=== PATIENT | female | born 1935 | race Caucasian/White ===

== ENCOUNTER 2017-06-16 20:29 | Inpatient (IN) | payer MEDICARE ==
[~2017-06-16] VITALS: Ht 165.1 cm; Wt 77.1 kg
[~2017-06-16 20:29] MED LIST: ACET-66 PO; ALBU8.5H8 IH; ALPR1TAB7 PO; AZIT250T9 PO; PROM25TA7 PO; THEO400T3 PO
[2017-06-16] MEDS ORDERED: IPRATROPIUM/ALBUTEROL SULFATE 3 ML SOLUTION IH ONE (20:43)
[2017-06-16] MEDS ORDERED: MEROPENEM 1 GM VIAL ONE (20:52)
[2017-06-16] MEDS ORDERED: FENTANYL CITRATE PF 50 MCG/1 ML 2ML VIAL ONE (20:53)
[2017-06-16] MEDS ORDERED: DEXAMETHASONE SOD PHOSPHATE 10MG/ML 1ML VIAL ONE (20:53)
[2017-06-16 21:23] LABS: BASOPHILS % (AUTO) 0.3 % (0.0-5.0); EOSINOPHILS % (AUTO) 0.1 % (0.0-8.0); HEMATOCRIT 34.2 % (36-48); MEAN CORPUSCULAR HEMOGLOBIN 29.1 pg (27.0-33.0); MEAN CORPUSCULAR HGB CONC 31.8 g/dL (32.0-36.0); MEAN CORPUSCULAR VOLUME 91.3 fL (79-99); MONOCYTES % (AUTO) 4.1 % (3.0-13.0); NEUTROPHILS % (AUTO) 93.5 % (40.0-77.0); NUCLEATED RED BLOOD CELLS 0.1 % (0.0-0.19); PLATELET COUNT (AUTO) 368 K/uL (130-400); RED BLOOD CELL COUNT(AUTO) 3.75 MIL/uL (4.00-5.50); RED CELL DISTRIBUTION WIDTH 15.2 % (11.0-15.5); WHITE BLOOD COUNT (AUTO) 12.4 K/uL (4.8-10.8)
[2017-06-16 21:37] LABS: CARBON DIOXIDE 39 mmol/L (21-32); CHLORIDE 95 mmol/L (101-111); CREATININE 0.6 mg/dL (0.5-1.5); GLOMERULAR FILTR. RATE CALC 102 mL/min (>60); GLUCOSE,RANDOM 114 mg/dL (70-105); POTASSIUM 4.8 mmol/L (3.5-5.1); SODIUM SERUM 135 mmol/L (136-145); UREA NITROGEN, BLOOD 9 mg/dL (7-18)
[2017-06-16 21:40] LABS: INR 0.94 (0.85-1.15); PARTIAL THROMBOPLASTIN TIME 28.9 SEC (26.3-35.5); PROTHROMBIN TIME 9.9 SEC (9.6-11.6)
[2017-06-16 21:52] LABS: ALANINE AMINOTRANSFERASE 11 U/L (12-78); ALBUMIN 2.7 g/dL (3.5-5.0); ASPARTATE AMINOTRANSFERASE 29 U/L (10-37); BILIRUBIN,TOTAL 0.5 mg/dL (0.2-1.0); CREATINE KINASE MB 2.3 ng/mL (0.5-3.6); CREATINE KINASE, TOTAL 74 U/L (21-232); MYOGLOBIN 54 ng/mL (10-92); TOTAL PROTEIN, SERUM 6.9 g/dL (6.0-8.3); TROPONIN I < 0.04 ng/mL (0.00-0.06)
[2017-06-16] MEDS ORDERED: ONDANSETRON HCL 4 MG/2 ML VIAL ONE (23:17)
[2017-06-17 00:18] LABS: APPEARANCE,URINE Clear (CLEAR); BILIRUBIN,URINE Negative (NEGATIVE); COLOR,URINE Yellow (YELLOW); GLUCOSE, URINE (UA) Negative (NEGATIVE); KETONES,URINE Trace mg/dL (NEGATIVE); LEUKOCYTE ESTERASE ,URINE Small (NEGATIVE); NITRATE,URINE Negative (NEGATIVE); OCCULT BLOOD,URINE Small (NEGATIVE); PROTEIN,URINE Negative (NEGATIVE); UROBILINOGEN,URINE 0.2 mg/dL (0.2-1.0)
[2017-06-17 00:30] LABS: BACTERIA,URINE Few /HPF (None Seen)
[2017-06-17 00:31] LABS: MUCUS,URINE Moderate LPF (None Seen); SQUAMOUS EPITHELIAL CELL,UR Moderate /LPF (0-2)
[2017-06-17] MEDS ORDERED: PROMETHAZINE HCL 25 MG/ML 1ML AMPULE IM ONE ×2 (01:31→05:23)
[2017-06-17] MEDS ORDERED: HYDROMORPHONE HCL 0.5 MG/0.5 ML ML ONE ×3 (01:31→10:19)
[2017-06-17] MEDS ORDERED: PROMETHAZINE HCL 25 MG/ML 1ML AMPULE IM PRN (05:15)
[2017-06-17] MEDS ORDERED: VANCOMYCIN PROTOCOL PER PHARMACY IV SCH (05:15)
[2017-06-17] MEDS ORDERED: HYDROMORPHONE HCL 0.5 MG/0.5 ML ML IVP PRN (05:15)
[2017-06-17] MEDS ORDERED: IPRATROPIUM/ALBUTEROL SULFATE 3 ML SOLUTION IH ONE ×2 (05:52→11:03)
[2017-06-17] MEDS: IPRATROPIUM/ALBUTEROL SULFATE 3 ML SOLUTION IH SCH ×5 (05:55→22:24)
[2017-06-17] MEDS ORDERED: VANCOMYCIN 1.5 GM in SODIUM CHLORIDE 0.9% 250 ML IV SCH (06:00)
[2017-06-17 06:35] LABS: BASOPHILS % (AUTO) 0.2 % (0.0-5.0); HEMATOCRIT 35.2 % (36-48); LYMPHOCYTES % (AUTO) 3.2 % (21.0-51.0); MEAN CORPUSCULAR HEMOGLOBIN 28.7 pg (27.0-33.0); MEAN CORPUSCULAR HGB CONC 31.1 g/dL (32.0-36.0); MONOCYTES % (AUTO) 1.1 % (3.0-13.0); NEUTROPHILS % (AUTO) 95.5 % (40.0-77.0); PLATELET COUNT (AUTO) 365 K/uL (130-400); RED BLOOD CELL COUNT(AUTO) 3.83 MIL/uL (4.00-5.50); RED CELL DISTRIBUTION WIDTH 15.7 % (11.0-15.5); WHITE BLOOD COUNT (AUTO) 5.9 K/uL (4.8-10.8)
[2017-06-17 06:40] LABS: CREATININE 0.6 mg/dL (0.5-1.5)
[2017-06-17 07:27] LABS: B-TYPE NATRIURETIC PEPTIDE 421 pg/mL (0-100)
[2017-06-17] MEDS ORDERED: VANCOMYCIN 1.25 GM in SODIUM CHLORIDE 0.9% 250 ML IV SCH (07:45)
[2017-06-17] MEDS ORDERED: DOXYCYCLINE 100MG+NS 250ML 250 ML IV ONE (07:50)
[2017-06-17] MEDS ORDERED: AZTREONAM 2 GM VIAL ONE (07:50)
[2017-06-17] MEDS ORDERED: OSELTAMIVIR PHOSPHATE 75 MG CAP ONE (07:52)
[2017-06-17] MEDS ORDERED: METHYLPREDNISOLONE SOD SUCC 40MG/ML 1ML ONE (07:53)
[2017-06-17] MEDS: DOXYCYCLINE 100MG+NS 250ML 250 ML IV SCH ×2 (08:00→22:11)
[2017-06-17] MEDS: METHYLPREDNISOLONE SOD SUCC 125MG/2ML VIAL IVP SCH ×3 (08:00→22:12)
[2017-06-17] MEDS: AZTREONAM 1 GM VIAL IVP SCH ×3 (08:00→22:12)
[2017-06-17] MEDS: OSELTAMIVIR PHOSPHATE 75 MG CAP PO SCH ×2 (08:11→22:11)
[2017-06-17 09:35] VITALS: BP 103/42
[2017-06-17 12:30] VITALS: BP 111/71
[2017-06-17 16:09] VITALS: BP 125/61
[2017-06-17 18:30] VITALS: BP_SYST 114; BP_SYST 127; BP_DIAS 76; BP_DIAS 78
[2017-06-17 19:49] VITALS: BP 125/60
[2017-06-17] MEDS: HYDROMORPHONE HCL 0.5 MG/0.5 ML ML IVP PRN (20:01)
[2017-06-17] MEDS: THEOPHYLLINE ANHYDROUS 100 MG TAB.SR.12H PO SCH (22:11)
[2017-06-17] MEDS: ALPRAZOLAM 1 MG TAB PO SCH (22:12)
[2017-06-17 23:56] VITALS: BP 121/53
[2017-06-18] MEDS: IPRATROPIUM/ALBUTEROL SULFATE 3 ML SOLUTION IH SCH ×6 (02:16→22:40)
[2017-06-18 04:00] VITALS: BP 131/76
[2017-06-18] MEDS: HYDROMORPHONE HCL 0.5 MG/0.5 ML ML IVP PRN ×3 (04:12→18:09)
[2017-06-18 04:22] LABS: HEMATOCRIT 31.9 % (36-48); MEAN CORPUSCULAR HEMOGLOBIN 29.6 pg (27.0-33.0); MEAN CORPUSCULAR HGB CONC 32.1 g/dL (32.0-36.0); PLATELET COUNT (AUTO) 321 K/uL (130-400); RED BLOOD CELL COUNT(AUTO) 3.47 MIL/uL (4.00-5.50); RED CELL DISTRIBUTION WIDTH 15.4 % (11.0-15.5); WHITE BLOOD COUNT (AUTO) 9.7 K/uL (4.8-10.8)
[2017-06-18 04:47] LABS: CREATININE 0.8 mg/dL (0.5-1.5); MAGNESIUM 2.4 mg/dL (1.80-2.40); PHOSPHORUS 3.4 mg/dL (2.5-4.9); THYROID STIMULATING HORMONE 0.54 uIU/mL (0.36-3.74)
[2017-06-18 04:56] LABS: ABG BASE EXCESS 8.8 mmol/L (-2.0-3.0); ABG HCO3 40.2 mmol/L (21.0-28.0); ABG OXYGEN SATURATION 89.2 % (95.0-99.0); ABG PCO2 92 mmHg (32-45)
[2017-06-18 04:57] LABS: THEOPHYLLINE 5.3 mcg/mL (10.0-20.0)
[2017-06-18] MEDS: ALPRAZOLAM 1 MG TAB PO SCH ×3 (05:02→17:00)
[2017-06-18] MEDS: METHYLPREDNISOLONE SOD SUCC 125MG/2ML VIAL IVP SCH ×3 (05:41→20:30)
[2017-06-18] MEDS: AZTREONAM 1 GM VIAL IVP SCH ×3 (05:41→23:00)
[2017-06-18 07:33] VITALS: BP 133/55
[2017-06-18] MEDS: VANCOMYCIN 500MG+NS 100ML 100 ML IV SCH ×2 (09:00→20:30)
[2017-06-18] MEDS: PANTOPRAZOLE SODIUM 40 MG TABLET.DR PO SCH (09:22)
[2017-06-18] MEDS: ENOXAPARIN SODIUM 40 MG/0.4 ML SYRINGE SQ SCH (09:22)
[2017-06-18] MEDS: OSELTAMIVIR PHOSPHATE 75 MG CAP PO SCH ×2 (09:23→20:30)
[2017-06-18] MEDS: DOXYCYCLINE 100MG+NS 250ML 250 ML IV SCH ×2 (09:53→17:40)
[2017-06-18 11:26] VITALS: BP 129/56
[2017-06-18] MEDS ORDERED: FENTANYL 50 MCG/HR PATCH TD SCH (12:15)
[2017-06-18 16:14] VITALS: BP 127/67
[2017-06-18 19:26] VITALS: BP 152/74
[2017-06-18] MEDS ORDERED: HYDROMORPHONE HCL 2 MG TAB PO PRN (20:15)
[2017-06-18] MEDS: THEOPHYLLINE ANHYDROUS 100 MG TAB.SR.12H PO SCH (21:00)
[2017-06-18] MEDS ORDERED: HYDROMORPHONE 1 MG/1 ML AMP IVP ONE (21:00)
[2017-06-19] VITALS (7 sets, daily range): BP systolic 107–143; BP diastolic 55–65
[2017-06-19] MEDS: IPRATROPIUM/ALBUTEROL SULFATE 3 ML SOLUTION IH SCH ×6 (01:34→21:48)
[2017-06-19] MEDS: ALPRAZOLAM 1 MG TAB PO PRN ×3 (01:54→10:37)
[2017-06-19] MEDS: AZTREONAM 1 GM VIAL IVP SCH ×3 (04:23→22:53)
[2017-06-19 04:44] LABS: ABG BASE EXCESS 3.5 mmol/L (-2.0-3.0); ABG HCO3 34.9 mmol/L (21.0-28.0); ABG OXYGEN SATURATION 84.7 % (95.0-99.0); ABG PCO2 91 mmHg (32-45)
[2017-06-19] MEDS: DOXYCYCLINE 100MG+NS 250ML 250 ML IV SCH ×2 (05:22→17:28)
[2017-06-19] MEDS: OSELTAMIVIR PHOSPHATE 75 MG CAP PO SCH ×2 (08:37→20:49)
[2017-06-19] MEDS: PANTOPRAZOLE SODIUM 40 MG TABLET.DR PO SCH (08:37)
[2017-06-19] MEDS: METHYLPREDNISOLONE SOD SUCC 125MG/2ML VIAL IVP SCH ×2 (08:37→20:49)
[2017-06-19] MEDS: ENOXAPARIN SODIUM 40 MG/0.4 ML SYRINGE SQ SCH (08:37)
[2017-06-19] MEDS: VANCOMYCIN 500MG+NS 100ML 100 ML IV SCH ×2 (08:40→20:48)
[2017-06-19] MEDS ORDERED: ACETAMINOPHEN 325 MG TAB PO PRN (18:15)
[2017-06-19] MEDS: THEOPHYLLINE ANHYDROUS 100 MG TAB.SR.12H PO SCH (20:47)
[2017-06-19] MEDS: ACETAMINOPHEN 325 MG TAB PO PRN (23:25)
[2017-06-20] MEDS: IPRATROPIUM/ALBUTEROL SULFATE 3 ML SOLUTION IH SCH ×6 (02:00→22:25)
[2017-06-20 04:01] VITALS: BP 143/64
[2017-06-20 04:24] LABS: HEMATOCRIT 31.7 % (36-48); MEAN CORPUSCULAR HEMOGLOBIN 29.8 pg (27.0-33.0); MEAN CORPUSCULAR HGB CONC 32.4 g/dL (32.0-36.0); PLATELET COUNT (AUTO) 280 K/uL (130-400); RED BLOOD CELL COUNT(AUTO) 3.45 MIL/uL (4.00-5.50); RED CELL DISTRIBUTION WIDTH 15.5 % (11.0-15.5); WHITE BLOOD COUNT (AUTO) 10.2 K/uL (4.8-10.8)
[2017-06-20 04:38] LABS: CREATININE 0.6 mg/dL (0.5-1.5); POTASSIUM 4.8 mmol/L (3.5-5.1); VANCOMYCIN LEVEL 9.3 mcg/mL (18.0-26.0)
[2017-06-20 04:40] LABS: ABG BASE EXCESS 14.6 mmol/L (-2.0-3.0); ABG HCO3 44.8 mmol/L (21.0-28.0); ABG OXYGEN SATURATION 93.8 % (95.0-99.0); ABG PCO2 84 mmHg (32-45)
[2017-06-20] MEDS: DOXYCYCLINE 100MG+NS 250ML 250 ML IV SCH ×2 (04:57→17:47)
[2017-06-20] MEDS: AZTREONAM 1 GM VIAL IVP SCH ×3 (05:15→23:05)
[2017-06-20 07:00] VITALS: BP 163/75
[2017-06-20] MEDS ORDERED: COMPOUND IV REFRIGERATED 1 EACH IVSOLN MISC PRN (07:00)
[2017-06-20] MEDS: VANCOMYCIN 500MG+NS 100ML 100 ML IV SCH ×2 (07:51→19:36)
[2017-06-20] MEDS: METHYLPREDNISOLONE SOD SUCC 125MG/2ML VIAL IVP SCH ×2 (09:31→19:38)
[2017-06-20] MEDS: PANTOPRAZOLE SODIUM 40 MG TABLET.DR PO SCH (09:31)
[2017-06-20] MEDS: ENOXAPARIN SODIUM 40 MG/0.4 ML SYRINGE SQ SCH (09:31)
[2017-06-20] MEDS: OSELTAMIVIR PHOSPHATE 75 MG CAP PO SCH ×2 (09:31→19:36)
[2017-06-20 11:00] VITALS: BP 139/69
[2017-06-20] MEDS: VANCOMYCIN 1.25 GM in SODIUM CHLORIDE 0.9% 250 ML IV SCH (12:06)
[2017-06-20] MEDS: ACETAMINOPHEN 325 MG TAB PO PRN (14:08)
[2017-06-20 16:00] VITALS: BP_SYST 111; BP_SYST 137; BP_DIAS 47; BP_DIAS 68
[2017-06-20] MEDS: THEOPHYLLINE ANHYDROUS 100 MG TAB.SR.12H PO SCH (19:36)
[2017-06-20] MEDS: IBUPROFEN 600 MG TABLET PO PRN (19:38)
[2017-06-20 19:46] VITALS: BP 130/68
[2017-06-21] VITALS: BP 139/81
[2017-06-21] MEDS: ACETAMINOPHEN 325 MG TAB PO PRN ×4 (00:15→18:24)
[2017-06-21] MEDS: IBUPROFEN 600 MG TABLET PO PRN ×4 (01:32→21:02)
[2017-06-21] MEDS: IPRATROPIUM/ALBUTEROL SULFATE 3 ML SOLUTION IH SCH ×6 (02:33→22:55)
[2017-06-21 03:52] VITALS: BP 133/76
[2017-06-21] MEDS: AZTREONAM 1 GM VIAL IVP SCH ×3 (04:52→23:23)
[2017-06-21] MEDS: DOXYCYCLINE 100MG+NS 250ML 250 ML IV SCH ×2 (04:57→18:23)
[2017-06-21 07:17] VITALS: BP 135/59
[2017-06-21] MEDS: PANTOPRAZOLE SODIUM 40 MG TABLET.DR PO SCH (08:35)
[2017-06-21] MEDS: OSELTAMIVIR PHOSPHATE 75 MG CAP PO SCH ×2 (08:35→19:44)
[2017-06-21] MEDS: METHYLPREDNISOLONE SOD SUCC 125MG/2ML VIAL IVP SCH ×2 (08:36→19:44)
[2017-06-21] MEDS: ENOXAPARIN SODIUM 40 MG/0.4 ML SYRINGE SQ SCH (08:37)
[2017-06-21] MEDS: VANCOMYCIN 1.25 GM in SODIUM CHLORIDE 0.9% 250 ML IV SCH (10:35)
[2017-06-21 11:37] VITALS: BP 145/84
[2017-06-21] MEDS: GUAIFENESIN SUGAR-FREE 100 MG/5 ML UDCUP PO PRN ×2 (12:41→20:29)
[2017-06-21 16:02] VITALS: BP 127/54
[2017-06-21] MEDS: THEOPHYLLINE ANHYDROUS 100 MG TAB.SR.12H PO SCH (19:44)
[2017-06-21 19:55] VITALS: BP 133/76
[2017-06-22] VITALS (7 sets, daily range): BP systolic 131–163; BP diastolic 71–88
[2017-06-22] MEDS: IPRATROPIUM/ALBUTEROL SULFATE 3 ML SOLUTION IH SCH ×6 (01:55→22:22)
[2017-06-22] MEDS: ACETAMINOPHEN 325 MG TAB PO PRN ×4 (02:15→22:42)
[2017-06-22] MEDS: AZTREONAM 1 GM VIAL IVP SCH ×3 (05:20→22:41)
[2017-06-22] MEDS: DOXYCYCLINE 100MG+NS 250ML 250 ML IV SCH ×2 (05:20→17:25)
[2017-06-22] MEDS: IBUPROFEN 600 MG TABLET PO PRN ×4 (05:33→20:09)
[2017-06-22] MEDS: GUAIFENESIN SUGAR-FREE 100 MG/5 ML UDCUP PO PRN ×4 (08:36→22:41)
[2017-06-22] MEDS: PANTOPRAZOLE SODIUM 40 MG TABLET.DR PO SCH (08:36)
[2017-06-22] MEDS: METHYLPREDNISOLONE SOD SUCC 125MG/2ML VIAL IVP SCH (08:36)
[2017-06-22] MEDS: ENOXAPARIN SODIUM 40 MG/0.4 ML SYRINGE SQ SCH (08:37)
[2017-06-22] MEDS: VANCOMYCIN 1.25 GM in SODIUM CHLORIDE 0.9% 250 ML IV SCH (08:43)
[2017-06-22] MEDS ORDERED: KETOROLAC TROMETHAMINE 30MG/ML ONE (11:04)
[2017-06-22] MEDS ORDERED: KETOROLAC TROMETHAMINE 30MG/ML IV SCH (11:30)
[2017-06-22] MEDS ORDERED: KETOROLAC TROMETHAMINE 15MG/ML IV PRN (13:00)
[2017-06-22] MEDS ORDERED: ISOVUE-370 50ML VIAL IV ONE (15:31)
[2017-06-22] MEDS: KETOROLAC TROMETHAMINE 15MG/ML IV PRN (16:33)
[2017-06-22] MEDS: METHYLPREDNISOLONE SOD SUCC 40MG/ML 1ML IVP SCH (20:42)
[2017-06-22] MEDS: THEOPHYLLINE ANHYDROUS 100 MG TAB.SR.12H PO SCH (20:43)
[2017-06-23] MEDS: KETOROLAC TROMETHAMINE 15MG/ML IV PRN ×3 (00:30→11:35)
[2017-06-23] MEDS: IBUPROFEN 600 MG TABLET PO PRN ×2 (01:58→07:35)
[2017-06-23] MEDS: IPRATROPIUM/ALBUTEROL SULFATE 3 ML SOLUTION IH SCH ×3 (02:39→09:46)
[2017-06-23 03:56] VITALS: BP 139/80
[2017-06-23 04:30] LABS: CREATININE 0.7 mg/dL (0.5-1.5); POTASSIUM 3.6 mmol/L (3.5-5.1)
[2017-06-23] MEDS: ACETAMINOPHEN 325 MG TAB PO PRN ×2 (04:56→11:36)
[2017-06-23 05:53] LABS: ABG BASE EXCESS 9.3 mmol/L (-2.0-3.0); ABG HCO3 32.4 mmol/L (21.0-28.0); ABG OXYGEN SATURATION 98.4 % (95.0-99.0); ABG PCO2 39 mmHg (32-45)
[2017-06-23] MEDS: AZTREONAM 1 GM VIAL IVP SCH (06:20)
[2017-06-23] MEDS: DOXYCYCLINE 100MG+NS 250ML 250 ML IV SCH (06:33)
[2017-06-23 07:00] VITALS: BP 134/80
[2017-06-23] MEDS: METHYLPREDNISOLONE SOD SUCC 40MG/ML 1ML IVP SCH (07:34)
[2017-06-23] MEDS: PANTOPRAZOLE SODIUM 40 MG TABLET.DR PO SCH (07:35)
[2017-06-23] MEDS: GUAIFENESIN SUGAR-FREE 100 MG/5 ML UDCUP PO PRN (07:35)
[2017-06-23] MEDS: ENOXAPARIN SODIUM 40 MG/0.4 ML SYRINGE SQ SCH (07:36)
[2017-06-23] MEDS ORDERED: VANCOMYCIN 750MG + NS 250 ML IV SCH ×2 (09:54)
[2017-06-23] MEDS ORDERED: COMPOUND IV REFRIGERATED 1 EACH IVSOLN MISC PRN (10:00)
[2017-06-23 11:00] VITALS: BP 135/72
[2017-06-23] MEDS ORDERED: PRED20TA3 PO (11:07)
[2017-06-23] MEDS ORDERED: DOXY100T19 PO (11:07)
== END 2017-06-23 12:00 | disposition home or self-care (01) | DRG 871 ==
LOC: EDH 20:29 → EDHIP 23:30 → 2CH 06-17 12:42 → 2AH 06-20 15:55
PROVIDERS: ADMIT Internal Medicine Critical Care Medicine; ATTEND Internal Medicine Critical Care Medicine
PROC: 5A09357 Assistance with Respiratory Ventilation, Less than 24 Consecutive Hours, Continuous Positive Airway Pressure (ICD-10-PCS; principal; 2017-06-18)
PROC: 5A09357 Assistance with Respiratory Ventilation, Less than 24 Consecutive Hours, Continuous Positive Airway Pressure (ICD-10-PCS; 2017-06-19)
DX: A41.9 Sepsis, unspecified organism (principal); J18.9 Pneumonia, unspecified organism; J96.21 Acute and chronic respiratory failure with hypoxia; J96.22 Acute and chronic respiratory failure with hypercapnia; J44.0 Chronic obstructive pulmonary disease with (acute) lower respiratory infection; J44.1 Chronic obstructive pulmonary disease with (acute) exacerbation; D64.9 Anemia, unspecified; E66.01 Morbid (severe) obesity due to excess calories; F41.8 Other specified anxiety disorders; G89.4 Chronic pain syndrome; M19.90 Unspecified osteoarthritis, unspecified site; Z74.01 Bed confinement status; Z99.81 Dependence on supplemental oxygen; Z68.28 Body mass index [BMI] 28.0-28.9, adult; Z88.0 Allergy status to penicillin; Z88.8 Allergy status to other drugs, medicaments and biological substances
CPT/HCPCS: 36415; 36600; 71045; 71260; 80048; 80053; 80198; 80202; 81001; 82550; 82553; 82803; 83605; 83735; 83874; 83880; 84100; 84443; 84484; 85025; 85027; 85610; 85730; 87040; 87088; 87804; 92610; 93005; 94640; 94660; 94664; 97039; 99291; A4218; A6234; J1100; J1170; J1650; J1885; J2185; J2405; J2550; J2920; J2930; J3010; J3370; J3490; J7030; Q9967

== ENCOUNTER 2017-07-19 19:28 | Inpatient (IN) | payer MEDICARE ==
[~2017-07-19] VITALS: Ht 167.6 cm; Wt 65.2 kg
[~2017-07-19 19:28] MED LIST changes: -ACET-66 PO; -ALBU8.5H8 IH; -AZIT250T9 PO; +DOXY100T19 PO; +ETOMIDATE 2 MG/ML 10 ML VIAL IVP ONE; +PRED20TA3 PO; -PROM25TA7 PO; +ROCURONIUM BROMIDE 10MG/1ML 5ML VL IV ONE
[2017-07-19] MEDS ORDERED: IPRATROPIUM/ALBUTEROL SULFATE 3 ML SOLUTION IH ONE (20:13)
[2017-07-19 20:35] LABS: BASOPHILS % (AUTO) 0.4 % (0.0-5.0); EOSINOPHILS % (AUTO) 0.5 % (0.0-8.0); HEMATOCRIT 32.8 % (36-48); LYMPHOCYTES % (AUTO) 2.1 % (21.0-51.0); MEAN CORPUSCULAR HEMOGLOBIN 28.3 pg (27.0-33.0); MEAN CORPUSCULAR HGB CONC 32.3 g/dL (32.0-36.0); MEAN CORPUSCULAR VOLUME 87.6 fL (79-99); MONOCYTES % (AUTO) 7.5 % (3.0-13.0); NEUTROPHILS % (AUTO) 89.5 % (40.0-77.0); PLATELET COUNT (AUTO) 343 K/uL (130-400); RED BLOOD CELL COUNT(AUTO) 3.75 MIL/uL (4.00-5.50); RED CELL DISTRIBUTION WIDTH 15.3 % (11.0-15.5); WHITE BLOOD COUNT (AUTO) 14.1 K/uL (4.8-10.8)
[2017-07-19 20:41] LABS: APPEARANCE,URINE Clear (CLEAR); BILIRUBIN,URINE Negative (NEGATIVE); COLOR,URINE Yellow (YELLOW); GLUCOSE, URINE (UA) Negative (NEGATIVE); KETONES,URINE Trace mg/dL (NEGATIVE); LEUKOCYTE ESTERASE ,URINE Moderate (NEGATIVE); NITRATE,URINE Negative (NEGATIVE); OCCULT BLOOD,URINE Negative (NEGATIVE); PH,URINE 6.5 (5.0-8.0); PROTEIN,URINE Trace (NEGATIVE); UROBILINOGEN,URINE 0.2 mg/dL (0.2-1.0)
[2017-07-19 20:53] LABS: BACTERIA,URINE Rare /HPF (None Seen); RBC,URINE 0-1 /HPF (0-1); YEAST,URINE BUDDING Moderate /HPF (None Seen)
[2017-07-19 21:08] LABS: CREATINE KINASE MB 1.6 ng/mL (0.5-3.6); TROPONIN I 0.04 ng/mL (0.00-0.06)
[2017-07-19 21:37] LABS: CREATININE 0.6 mg/dL (0.5-1.5); POTASSIUM 3.2 mmol/L (3.5-5.1)
[2017-07-19 21:42] LABS: ALBUMIN 2.1 g/dL (3.5-5.0); BILIRUBIN,TOTAL 0.3 mg/dL (0.2-1.0); TOTAL PROTEIN, SERUM 6.4 g/dL (6.0-8.3)
[2017-07-19] MEDS ORDERED: PROMETHAZINE HCL 25 MG/ML 1ML AMPULE IM ONE (22:27)
[2017-07-20] VITALS (7 sets, daily range): BP systolic 105–137; BP diastolic 56–66
[2017-07-20] MEDS ORDERED: LIDOCAINE HCL-MPF 1% 2ML VIAL IJ PRN (01:00)
[2017-07-20] MEDS ORDERED: POTASSIUM CHLORIDE 10% ELIXIR 20 MEQ/15 ML UDCUP PO PRN (01:00)
[2017-07-20] MEDS ORDERED: HYDRALAZINE HCL 20 MG/ML VIAL IV PRN (01:00)
[2017-07-20] MEDS ORDERED: ONDANSETRON HCL MDV 20ML 2 MG/ML VIAL IVP PRN ×2 (01:00→01:30)
[2017-07-20] MEDS ORDERED: POTASSIUM CHLORIDE 20 MEQ ERTAB PO PRN (01:00)
[2017-07-20] MEDS: ALBUTEROL SULFATE 0.083% 2.5 MG/3 ML INH IH SCH ×6 (01:10→22:23)
[2017-07-20] MEDS: SODIUM CHLORIDE 0.9% 1000ML 1,000 ML IV SCH ×3 (01:36→22:22)
[2017-07-20] MEDS: MORPHINE SULFATE 2 MG/ML 1ML SYG IVP PRN ×3 (01:39→18:04)
[2017-07-20] MEDS: PROMETHAZINE HCL 25 MG/ML 1ML AMPULE IM PRN ×2 (03:03→12:19)
[2017-07-20] MEDS ORDERED: DOXYCYCLINE 100MG+NS 250ML 250 ML IV ONE (03:12)
[2017-07-20] MEDS: DOXYCYCLINE 100MG+NS 250ML 250 ML IV SCH ×2 (03:27→18:04)
[2017-07-20 05:33] LABS: HEMATOCRIT 32.9 % (36-48); MEAN CORPUSCULAR HEMOGLOBIN 27.8 pg (27.0-33.0); MEAN CORPUSCULAR HGB CONC 32.2 g/dL (32.0-36.0); MEAN CORPUSCULAR VOLUME 86.5 fL (79-99); PLATELET COUNT (AUTO) 361 K/uL (130-400); RED BLOOD CELL COUNT(AUTO) 3.81 MIL/uL (4.00-5.50); RED CELL DISTRIBUTION WIDTH 15.1 % (11.0-15.5); WHITE BLOOD COUNT (AUTO) 14.7 K/uL (4.8-10.8)
[2017-07-20] MEDS ORDERED: METOPROLOL TARTRATE 1 MG/ML 5ML VIAL IV ONE (05:40)
[2017-07-20] MEDS: DILTIAZEM HCL 5 MG/ML 10 ML VIAL IV SCH ×2 (05:45→06:10)
[2017-07-20 05:48] LABS: CREATININE 0.7 mg/dL (0.5-1.5); POTASSIUM 3.1 mmol/L (3.5-5.1)
[2017-07-20] MEDS: METOPROLOL TARTRATE 1 MG/ML 5ML VIAL IV PRN (06:07)
[2017-07-20] MEDS: PANTOPRAZOLE 40 MG/VIAL IVP SCH ×2 (08:44→22:21)
[2017-07-20] MEDS: ENOXAPARIN SODIUM 30 MG/0.3 ML SQ SCH ×2 (09:04→22:22)
[2017-07-21] MEDS ORDERED: MORPHINE SULFATE 4 MG/1ML SYG ONE ×4 (00:05→18:34)
[2017-07-21] MEDS: POTASSIUM CHLORIDE 20MEQ/100ML 100 ML IV PRN (00:16)
[2017-07-21] MEDS: DOXYCYCLINE 100MG+NS 250ML 250 ML IV SCH (00:16)
[2017-07-21] MEDS: PROMETHAZINE HCL 25 MG/ML 1ML AMPULE IM PRN ×2 (00:25→22:00)
[2017-07-21] MEDS: ALBUTEROL SULFATE 0.083% 2.5 MG/3 ML INH IH SCH ×6 (01:32→22:09)
[2017-07-21 03:50] VITALS: BP 130/71
[2017-07-21 03:57] LABS: BASOPHILS % (AUTO) 0.4 % (0.0-5.0); EOSINOPHILS % (AUTO) 1.1 % (0.0-8.0); HEMATOCRIT 31.8 % (36-48); MEAN CORPUSCULAR HEMOGLOBIN 28.9 pg (27.0-33.0); MEAN CORPUSCULAR HGB CONC 32.8 g/dL (32.0-36.0); MEAN CORPUSCULAR VOLUME 88.2 fL (79-99); MONOCYTES % (AUTO) 9.1 % (3.0-13.0); NEUTROPHILS % (AUTO) 86.4 % (40.0-77.0); PLATELET COUNT (AUTO) 314 K/uL (130-400); RED BLOOD CELL COUNT(AUTO) 3.61 MIL/uL (4.00-5.50); RED CELL DISTRIBUTION WIDTH 15.3 % (11.0-15.5)
[2017-07-21 04:03] LABS: CREATININE 0.6 mg/dL (0.5-1.5); POTASSIUM 4.3 mmol/L (3.5-5.1)
[2017-07-21 07:05] VITALS: BP 124/61
[2017-07-21] MEDS: SODIUM CHLORIDE 0.9% 1000ML 1,000 ML IV SCH (08:26)
[2017-07-21] MEDS ORDERED: PHARMACY COMMUNICATION MISC ONE (08:30)
[2017-07-21] MEDS ORDERED: SODIUM CHLORIDE 0.9% 1000ML 1,000 ML IV SCH (08:30)
[2017-07-21] MEDS: SODIUM CHLORIDE 0.9% 500ML 300 ML IV SCH ×3 (09:00→11:00)
[2017-07-21 10:35] VITALS: BP 120/58
[2017-07-21] MEDS: PANTOPRAZOLE 40 MG/VIAL IVP SCH ×2 (12:14→21:59)
[2017-07-21] MEDS: ENOXAPARIN SODIUM 30 MG/0.3 ML SQ SCH ×2 (12:16→22:00)
[2017-07-21 15:00] VITALS: BP 105/50
[2017-07-21] MEDS: AZITHROMYCIN 500MG+NS 250ML 250 ML IV SCH (15:46)
[2017-07-21] MEDS ORDERED: SODIUM CHLORIDE 0.9% 500ML 500 ML IV SCH (17:30)
[2017-07-21] MEDS: SODIUM CHLORIDE 0.9% 500ML 500 ML IV SCH (18:43)
[2017-07-21 19:30] VITALS: BP 133/60
[2017-07-21] MEDS ORDERED: SULFAMETHOX-TMP DS 800/160 TAB PO SCH (21:00)
[2017-07-21] MEDS: METOPROLOL TARTRATE 1 MG/ML 5ML VIAL IV PRN (22:21)
[2017-07-21 23:09] VITALS: BP 136/77
[2017-07-22] MEDS ORDERED: MORPHINE SULFATE 4 MG/1ML SYG ONE (01:22)
[2017-07-22] MEDS: ALBUTEROL SULFATE 0.083% 2.5 MG/3 ML INH IH SCH ×6 (01:46→22:46)
[2017-07-22 04:14] VITALS: BP 126/70
[2017-07-22 04:47] LABS: HEMATOCRIT 35.4 % (36-48); MEAN CORPUSCULAR HEMOGLOBIN 27.8 pg (27.0-33.0); MEAN CORPUSCULAR VOLUME 89.9 fL (79-99); PLATELET COUNT (AUTO) 379 K/uL (130-400); RED BLOOD CELL COUNT(AUTO) 3.93 MIL/uL (4.00-5.50); WHITE BLOOD COUNT (AUTO) 14.6 K/uL (4.8-10.8)
[2017-07-22 05:05] LABS: CREATININE 0.6 mg/dL (0.5-1.5); MAGNESIUM 1.7 mg/dL (1.80-2.40); POTASSIUM 4.6 mmol/L (3.5-5.1)
[2017-07-22] MEDS: DILTIAZEM HCL 5 MG/ML 10 ML VIAL IV SCH (05:45)
[2017-07-22 07:23] VITALS: BP 122/55
[2017-07-22] MEDS ORDERED: AZTREONAM 1 GM in SODIUM CHLORIDE 0.9% 50 ML IV SCH (10:15)
[2017-07-22] MEDS: PANTOPRAZOLE 40 MG/VIAL IVP SCH ×2 (10:19→22:08)
[2017-07-22] MEDS: ENOXAPARIN SODIUM 30 MG/0.3 ML SQ SCH ×2 (10:22→22:08)
[2017-07-22 11:00] VITALS: BP 100/49
[2017-07-22] MEDS: AZTREONAM 1 GM VIAL IVP SCH ×2 (11:44→22:07)
[2017-07-22] MEDS: AZITHROMYCIN 500MG+NS 250ML 250 ML IV SCH (14:56)
[2017-07-22 15:00] VITALS: BP 111/60
[2017-07-22] MEDS: MAGNESIUM 2GM PREMIX 50ML 50 ML IV SCH (15:04)
[2017-07-22 20:00] VITALS: BP 106/43
[2017-07-22 23:51] VITALS: BP 130/65
[2017-07-23] MEDS: ALBUTEROL SULFATE 0.083% 2.5 MG/3 ML INH IH SCH ×5 (02:13→23:11)
[2017-07-23] MEDS ORDERED: MORPHINE SULFATE 4 MG/1ML SYG ONE (02:27)
[2017-07-23 03:46] LABS: HEMATOCRIT 34.2 % (36-48); MEAN CORPUSCULAR HEMOGLOBIN 28.4 pg (27.0-33.0); MEAN CORPUSCULAR HGB CONC 31.4 g/dL (32.0-36.0); MEAN CORPUSCULAR VOLUME 90.5 fL (79-99); PLATELET COUNT (AUTO) 394 K/uL (130-400); RED BLOOD CELL COUNT(AUTO) 3.78 MIL/uL (4.00-5.50); RED CELL DISTRIBUTION WIDTH 15.1 % (11.0-15.5); WHITE BLOOD COUNT (AUTO) 15.9 K/uL (4.8-10.8)
[2017-07-23 03:58] VITALS: BP 103/65
[2017-07-23 04:01] LABS: CREATININE 0.8 mg/dL (0.5-1.5); MAGNESIUM 1.8 mg/dL (1.80-2.40); POTASSIUM 5.2 mmol/L (3.5-5.1)
[2017-07-23] MEDS: DILTIAZEM HCL 5 MG/ML 10 ML VIAL IV SCH (05:45)
[2017-07-23 08:14] VITALS: BP 117/54
[2017-07-23] MEDS: AZTREONAM 1 GM VIAL IVP SCH ×2 (09:24→21:13)
[2017-07-23] MEDS: PANTOPRAZOLE 40 MG/VIAL IVP SCH (09:24)
[2017-07-23] MEDS: ENOXAPARIN SODIUM 30 MG/0.3 ML SQ SCH ×2 (09:24→21:14)
[2017-07-23 11:51] VITALS: BP 114/61
[2017-07-23] MEDS: AZITHROMYCIN 500MG+NS 250ML 250 ML IV SCH (15:02)
[2017-07-23 15:24] VITALS: BP 121/53
[2017-07-23 19:53] VITALS: BP 117/55
[2017-07-23] MEDS ORDERED: ALBUTEROL SULFATE 0.083% 2.5 MG/3 ML INH IH ONE (22:32)
[2017-07-23 23:50] VITALS: BP 128/66
[2017-07-24] VITALS (17 sets, daily range): BP systolic 90–142; BP diastolic 42–106
[2017-07-24] MEDS ORDERED: MORPHINE SULFATE 4 MG/1ML SYG ONE (01:40)
[2017-07-24] MEDS: SODIUM CHLORIDE 0.9% 500ML 500 ML IV SCH (01:49)
[2017-07-24] MEDS: MAGNESIUM 2GM PREMIX 50ML 50 ML IV SCH (01:50)
[2017-07-24 04:15] LABS: HEMATOCRIT 32.8 % (36-48); MEAN CORPUSCULAR HEMOGLOBIN 27.8 pg (27.0-33.0); MEAN CORPUSCULAR HGB CONC 31.2 g/dL (32.0-36.0); MEAN CORPUSCULAR VOLUME 89.3 fL (79-99); NUCLEATED RED BLOOD CELLS 0.1 % (0.0-0.19); PLATELET COUNT (AUTO) 460 K/uL (130-400); RED BLOOD CELL COUNT(AUTO) 3.68 MIL/uL (4.00-5.50); RED CELL DISTRIBUTION WIDTH 15.5 % (11.0-15.5); WHITE BLOOD COUNT (AUTO) 17.9 K/uL (4.8-10.8)
[2017-07-24 04:25] LABS: BAND NEUTROPHILS % (MANUAL) 7 % (0-2); CREATININE 1.1 mg/dL (0.5-1.5); LYMPHOCYTES % (MANUAL) 8 % (22-44); MAGNESIUM 2.7 mg/dL (1.80-2.40); MAN.DIFF COMMENT-IMPRESSION MANUAL DIFFERENTIAL; MONOCYTES % (MANUAL) 5 % (2-9); POTASSIUM 5.2 mmol/L (3.5-5.1); SEGMENTED NEUTROPHILS % 80 % (40-70)
[2017-07-24 04:26] LABS: PLATELET MORPHOLOGY COMMENT INCREASED
[2017-07-24] MEDS: DILTIAZEM HCL 5 MG/ML 10 ML VIAL IV SCH (05:45)
[2017-07-24] MEDS: ALBUTEROL SULFATE 0.083% 2.5 MG/3 ML INH IH SCH ×4 (06:50→23:19)
[2017-07-24] MEDS: METOPROLOL TARTRATE 25 MG TAB PO SCH ×2 (10:45→20:21)
[2017-07-24] MEDS ORDERED: VANCOMYCIN 1GM+NS 250ML 250 ML IV ONE (11:00)
[2017-07-24 11:25] LABS: ABG BASE EXCESS -0.4 mmol/L (-2.0-3.0); ABG HCO3 34.1 mmol/L (21.0-28.0); ABG OXYGEN SATURATION 96.6 % (95.0-99.0); ABG PCO2 121 mmHg (32-45)
[2017-07-24] MEDS ORDERED: DOXYCYCLINE 100MG+NS 250ML 250 ML IV SCH (11:30)
[2017-07-24] MEDS ORDERED: MIDAZOLAM HCL 1 MG/ML 2ML VIAL ONE (11:32)
[2017-07-24] MEDS ORDERED: PROPOFOL 1000 MG/100 ML 100 ML IV ONE (11:33)
[2017-07-24] MEDS ORDERED: SODIUM CHLORIDE 0.9% 1000ML 1,000 ML IV ONE (11:35)
[2017-07-24] MEDS: ENOXAPARIN SODIUM 30 MG/0.3 ML SQ SCH ×2 (13:01→20:21)
[2017-07-24] MEDS: FLUCONAZOLE 400 MG/NS 200 ML 200 ML IV SCH (13:01)
[2017-07-24] MEDS: PANTOPRAZOLE 40 MG/VIAL IVP SCH (13:02)
[2017-07-24] MEDS: AZTREONAM 1 GM VIAL IVP SCH (13:02)
[2017-07-24] MEDS: AZITHROMYCIN 500MG+NS 250ML 250 ML IV SCH (13:14)
[2017-07-24] MEDS ORDERED: PROPOFOL 1000 MG/100 ML IV PRN (13:30)
[2017-07-24] MEDS ORDERED: PROPOFOL 1000 MG/100 ML 100 ML IV PRN (13:30)
[2017-07-24] MEDS ORDERED: NOREPINEPHRINE 4MG/NS 250ML 250 ML IV SCH (13:30)
[2017-07-24 15:23] LABS: ABG BASE EXCESS 2.8 mmol/L (-2.0-3.0); ABG HCO3 27.3 mmol/L (21.0-28.0); ABG OXYGEN SATURATION 99.3 % (95.0-99.0); ABG PCO2 42 mmHg (32-45)
[2017-07-24] MEDS ORDERED: MEROPENEM 1GM IVPB PREMIXED 1 GM IV SCH (16:00)
[2017-07-24] MEDS: MEROPENEM 1 GM VIAL IVP SCH (16:54)
[2017-07-24] MEDS ORDERED: FENTANYL 2500MCG+NS 250ML 250 ML IV PRN (19:45)
[2017-07-24] MEDS ORDERED: MIDAZOLAM 100MG-0.9% NS 100ML 100 ML IV PRN (19:45)
[2017-07-24] MEDS ORDERED: FENTANYL 2500MCG+NS 250ML 250 ML IV ONE (19:49)
[2017-07-25] VITALS (25 sets, daily range): BP systolic 90–155; BP diastolic 39–83
[2017-07-25 04:16] LABS: HEMATOCRIT 27.4 % (36-48); MEAN CORPUSCULAR HEMOGLOBIN 28.5 pg (27.0-33.0); MEAN CORPUSCULAR HGB CONC 32.3 g/dL (32.0-36.0); MEAN CORPUSCULAR VOLUME 88.4 fL (79-99); PLATELET COUNT (AUTO) 395 K/uL (130-400); RED CELL DISTRIBUTION WIDTH 15.8 % (11.0-15.5); WHITE BLOOD COUNT (AUTO) 16.8 K/uL (4.8-10.8)
[2017-07-25] MEDS: MEROPENEM 1 GM VIAL IVP SCH ×2 (04:18→15:34)
[2017-07-25 04:26] LABS: CREATININE 1.2 mg/dL (0.5-1.5); POTASSIUM 4.5 mmol/L (3.5-5.1)
[2017-07-25 05:36] LABS: ABG HCO3 25.4 mmol/L (21.0-28.0); ABG OXYGEN SATURATION 96.9 % (95.0-99.0); ABG PCO2 33 mmHg (32-45)
[2017-07-25] MEDS: ALBUTEROL SULFATE 0.083% 2.5 MG/3 ML INH IH SCH ×3 (06:21→19:14)
[2017-07-25] MEDS: FAMOTIDINE/PF 20 MG/2 ML VIAL IV SCH (08:13)
[2017-07-25] MEDS: METOPROLOL TARTRATE 25 MG TAB PO SCH ×2 (08:14→20:17)
[2017-07-25] MEDS: ENOXAPARIN SODIUM 30 MG/0.3 ML SQ SCH ×2 (08:14→20:18)
[2017-07-25] MEDS: FLUCONAZOLE 400 MG/NS 200 ML 200 ML IV SCH (09:30)
[2017-07-25] MEDS: FUROSEMIDE 10 MG/ML 4ML VIAL IV SCH (15:35)
[2017-07-25] MEDS: AZITHROMYCIN 500MG+NS 250ML 250 ML IV SCH (15:36)
[2017-07-26] VITALS (24 sets, daily range): BP systolic 94–170; BP diastolic 48–95
[2017-07-26] MEDS: ALBUTEROL SULFATE 0.083% 2.5 MG/3 ML INH IH SCH ×5 (00:41→23:18)
[2017-07-26] MEDS: FUROSEMIDE 10 MG/ML 4ML VIAL IV SCH ×2 (02:29→13:35)
[2017-07-26] MEDS: MEROPENEM 1 GM VIAL IVP SCH ×2 (04:07→17:08)
[2017-07-26 04:39] LABS: MEAN CORPUSCULAR HEMOGLOBIN 28.2 pg (27.0-33.0); MEAN CORPUSCULAR HGB CONC 32.4 g/dL (32.0-36.0); MEAN CORPUSCULAR VOLUME 86.9 fL (79-99); PLATELET COUNT (AUTO) 363 K/uL (130-400); RED BLOOD CELL COUNT(AUTO) 3.34 MIL/uL (4.00-5.50); RED CELL DISTRIBUTION WIDTH 15.8 % (11.0-15.5); WHITE BLOOD COUNT (AUTO) 16.3 K/uL (4.8-10.8)
[2017-07-26 04:53] LABS: CREATININE 0.9 mg/dL (0.5-1.5); POTASSIUM 3.5 mmol/L (3.5-5.1)
[2017-07-26] MEDS: POTASSIUM CHLORIDE 20MEQ/100ML 100 ML IV PRN (05:40)
[2017-07-26] MEDS: METOPROLOL TARTRATE 25 MG TAB PO SCH ×2 (08:38→20:11)
[2017-07-26] MEDS: FAMOTIDINE/PF 20 MG/2 ML VIAL IV SCH (08:38)
[2017-07-26] MEDS: FLUCONAZOLE 400 MG/NS 200 ML 200 ML IV SCH (08:38)
[2017-07-26] MEDS: ENOXAPARIN SODIUM 30 MG/0.3 ML SQ SCH ×2 (08:38→20:11)
[2017-07-26] MEDS: AZITHROMYCIN 500MG+NS 250ML 250 ML IV SCH (13:35)
[2017-07-26] MEDS ORDERED: MORPHINE SULFATE 4 MG/1ML SYG IVP PRN (15:15)
[2017-07-27] VITALS (14 sets, daily range): BP systolic 89–131; BP diastolic 45–68
[2017-07-27 04:14] LABS: HEMATOCRIT 27.3 % (36-48); MEAN CORPUSCULAR HEMOGLOBIN 28.8 pg (27.0-33.0); MEAN CORPUSCULAR HGB CONC 32.9 g/dL (32.0-36.0); MEAN CORPUSCULAR VOLUME 87.6 fL (79-99); PLATELET COUNT (AUTO) 309 K/uL (130-400); RED BLOOD CELL COUNT(AUTO) 3.12 MIL/uL (4.00-5.50); RED CELL DISTRIBUTION WIDTH 15.7 % (11.0-15.5); WHITE BLOOD COUNT (AUTO) 14.9 K/uL (4.8-10.8)
[2017-07-27 04:19] LABS: CREATININE 0.7 mg/dL (0.5-1.5); POTASSIUM 3.2 mmol/L (3.5-5.1)
[2017-07-27] MEDS: FUROSEMIDE 10 MG/ML 4ML VIAL IV SCH (04:21)
[2017-07-27] MEDS: MEROPENEM 1 GM VIAL IVP SCH (04:22)
[2017-07-27] MEDS: ALBUTEROL SULFATE 0.083% 2.5 MG/3 ML INH IH SCH (06:09)
[2017-07-27] MEDS: METOPROLOL TARTRATE 25 MG TAB PO SCH (08:35)
[2017-07-27] MEDS: FAMOTIDINE/PF 20 MG/2 ML VIAL IV SCH (08:35)
[2017-07-27] MEDS: ENOXAPARIN SODIUM 30 MG/0.3 ML SQ SCH (08:35)
[2017-07-27] MEDS: FLUCONAZOLE 400 MG/NS 200 ML 200 ML IV SCH (08:35)
[2017-07-27] MEDS ORDERED: LORAZEPAM 2 MG/ML 1 ML VIAL IVP PRN (11:30)
[2017-07-27] MEDS ORDERED: MORPHINE SULFATE 4 MG/1ML SYG IV PRN (11:30)
== END 2017-07-27 12:14 | disposition hospice, inpatient (51) | DRG 871 ==
LOC: EDH 19:28 → OBSVTOIN 23:13 → EDHIP 23:13 → 3CH 23:48 → 2BH 07-24 11:15
PROVIDERS: ADMIT Internal Medicine Nephrology; ATTEND Internal Medicine Nephrology
PROC: 0BH17EZ Insertion of Endotracheal Airway into Trachea, Via Natural or Artificial Opening (ICD-10-PCS; principal; 2017-07-24)
PROC: 5A1945Z Respiratory Ventilation, 24-96 Consecutive Hours (ICD-10-PCS; 2017-07-24)
PROC: 05H533Z Insertion of Infusion Device into Right Subclavian Vein, Percutaneous Approach (ICD-10-PCS; 2017-07-24)
PROC: 02HV33Z Insertion of Infusion Device into Superior Vena Cava, Percutaneous Approach (ICD-10-PCS; 2017-07-24)
PROC: 02HV33Z Insertion of Infusion Device into Superior Vena Cava, Percutaneous Approach (ICD-10-PCS; 2017-07-25)
DX: A41.9 Sepsis, unspecified organism (principal); E43 Unspecified severe protein-calorie malnutrition; J96.21 Acute and chronic respiratory failure with hypoxia; J18.9 Pneumonia, unspecified organism; J91.8 Pleural effusion in other conditions classified elsewhere; J44.0 Chronic obstructive pulmonary disease with (acute) lower respiratory infection; E87.2 Acidosis; E87.5 Hyperkalemia; J96.22 Acute and chronic respiratory failure with hypercapnia; E87.1 Hypo-osmolality and hyponatremia; N39.0 Urinary tract infection, site not specified; J44.1 Chronic obstructive pulmonary disease with (acute) exacerbation; R64 Cachexia; Z66 Do not resuscitate; D64.9 Anemia, unspecified; E83.42 Hypomagnesemia; I07.1 Rheumatic tricuspid insufficiency; E86.0 Dehydration; E87.6 Hypokalemia; F41.9 Anxiety disorder, unspecified; I10 Essential (primary) hypertension; F41.1 Generalized anxiety disorder; J20.9 Acute bronchitis, unspecified; Z51.5 Encounter for palliative care; Z87.891 Personal history of nicotine dependence; Z95.0 Presence of cardiac pacemaker; Z99.81 Dependence on supplemental oxygen; Z68.23 Body mass index [BMI] 23.0-23.9, adult; Z88.0 Allergy status to penicillin; Z88.8 Allergy status to other drugs, medicaments and biological substances
CPT/HCPCS: 31500; 36415; 36600; 70450; 71045; 74150; 80048; 80053; 80198; 81001; 82140; 82550; 82553; 82803; 82948; 83690; 83735; 83874; 83880; 84484; 85025; 85027; 85378; 87040; 87088; 87186; 87633; 93005; 93306; 93970; 94002; 94003; 94640; 94664; A4218; C1751; C9113; J0456; J1450; J1650; J1940; J2060; J2185; J2250; J2270; J2550; J2704; J3010; J3370; J3475; J3480; J3490; J7030; J7040

== ENCOUNTER 2017-07-27 12:15 | Inpatient (IN) | payer OTHER ==
[2017-07-27] MEDS ORDERED: ALBUTEROL SULFATE 0.083% 2.5 MG/3 ML INH IH PRN (14:45)
[2017-07-27] MEDS ORDERED: BISACODYL 10 MG SUPP.RECT RC PRN (14:45)
[2017-07-27] MEDS ORDERED: PROMETHAZINE HCL 25 MG/ML 1ML AMPULE IM PRN (14:45)
[2017-07-27] MEDS ORDERED: ACETAMINOPHEN 650 MG SUPPOSITORY RC PRN (14:45)
[2017-07-27] MEDS: MORPHINE SULFATE 4 MG/1ML SYG IVP PRN ×5 (16:50→22:49)
[2017-07-27] MEDS: LORAZEPAM 2 MG/ML 1 ML VIAL IVP PRN ×4 (18:53→22:49)
[2017-07-28] MEDS: LORAZEPAM 2 MG/ML 1 ML VIAL IVP PRN ×4 (00:04→06:31)
[2017-07-28] MEDS: MORPHINE SULFATE 4 MG/1ML SYG IVP PRN ×5 (00:05→06:30)
== END 2017-07-29 04:40 | disposition expired | DRG 871 ==
LOC: 2BH 12:15 → 2DH 16:36
PROVIDERS: ADMIT Internal Medicine Critical Care Medicine; ATTEND Internal Medicine Critical Care Medicine
DX: A41.9 Sepsis, unspecified organism (principal); J18.9 Pneumonia, unspecified organism; G93.40 Encephalopathy, unspecified; E43 Unspecified severe protein-calorie malnutrition; N39.0 Urinary tract infection, site not specified; E87.1 Hypo-osmolality and hyponatremia; J44.9 Chronic obstructive pulmonary disease, unspecified; Z51.5 Encounter for palliative care; Z66 Do not resuscitate; F41.1 Generalized anxiety disorder; J40 Bronchitis, not specified as acute or chronic; I10 Essential (primary) hypertension
CPT/HCPCS: J2060; J2270